=== PATIENT | male | born 1955 | race Caucasian/White ===

== ENCOUNTER 2021-07-24 21:05 | Emergency (ER) | payer BC, MEDICARE ==
[2021-07-24 22:04] LABS: BASOPHILS # (AUTO) 0.1 10^3/uL (0.0-0.1); BASOPHILS % (AUTO) 0.8 %; EOSINOPHILS # (AUTO) 0.2 10^3/uL (0.0-0.7); EOSINOPHILS % (AUTO) 2.4 %; HCT - HEMATOCRIT 39.8 % (42.0-52.0); HGB - HEMOGLOBIN 13.8 g/dL (14.0-18.0); LYMPHOCYTES # (AUTO) 2.3 10^3/uL (1.5-3.5); LYMPHOCYTES % (AUTO) 28.6 %; MEAN CORPUSCULAR HEMOGLOBIN 31.2 pg (27.0-31.0); MEAN CORPUSCULAR HGB CONC 34.7 g/dL (32.0-36.0); MEAN CORPUSCULAR VOLUME 89.8 fL (80.0-94.0); MEAN PLATELET VOLUME 10.3 fL (7.4-11.4); MONOCYTES # (AUTO) 0.8 10^3/uL (0.0-1.0); MONOCYTES % (AUTO) 9.7 %; NEUTROPHILS # (AUTO) 4.6 10^3/uL (1.5-6.6); NEUTROPHILS % (AUTO) 58.1 %; PLT - PLATELET COUNT 225 10^3/uL (130-450); RED BLOOD COUNT 4.43 10^6/uL (4.70-6.10); RED CELL DISTRIBUTION WIDTH 13.2 % (12.0-15.0); WHITE BLOOD COUNT 7.9 x10^3/uL (4.8-10.8)
[2021-07-24 22:09] LABS: INR 0.9 (0.8-1.2); PT - PROTHROMBIN TIME 10.5 secs (9.9-12.6)
[2021-07-24 22:11] LABS: CALCIUM 9.5 mg/dL (8.5-10.3); CREATININE 1.2 mg/dL (0.6-1.2)
[2021-07-24] MEDS ORDERED: ENOXAPARIN 80 MG/0.8 ML SYRINGE SUBQ STA (22:52)
--- NOTE | 2021-07-24 22:53 | ED Physician Documentation ---
PD HPI LOWER EXT INJURY - Stated complaint Stated Complaint: SWELLING L LEG - Chief complaint Chief Complaint: Ext Problem - History obtained from History obtained from: Patient - Additional information Additional information: Patient presenting for evaluation of left leg swelling and bruising Which he noticed today. On Sunday, patient was Walking in the snow at [employer] When he felt a pop, pain sensation behind the left knee.He was seen at an urgent care the following day and felt to have had a Lai's cyst. He was advised that if he develops swelling in the extremity he may need an ultrasound to rule out a DVT.This evening he noticed increased swelling to the extremity as well as bruising and discoloration to the extremity. Denies any new trauma. Denies history of PE or DVT. Denies chest pain or difficulty breathing. He has been active this week including going to the driving range today. Review of Systems Constitutional: denies: Fever Nose: denies: Congestion Cardiac: denies: Chest pain / pressure Respiratory: denies: Dyspnea GI: denies: Abdominal Pain : denies: Hematuria Musculoskeletal: reports: Extremity pain, Extremity swelling Neurologic: denies: Syncope PD PAST MEDICAL HISTORY - Past Medical History Cardiovascular: Hypertension Respiratory: None Neuro: None Endocrine/Autoimmune: None GI: None : None HEENT: None Psych: None Musculoskeletal: Osteoarthritis Derm: None Other Past Medical History: Prostate CA --PSA # WNL, no active tx - Present Medications Home Medications: Ambulatory Orders Medication Instructions Recorded Confirmed Losartan [Cozaar] 100 mg PO DAILY 07/24/21 07/24/21 - Allergies Allergies/Adverse Reactions: Allergies Allergy/AdvReac Type Severity Reaction Status Date / Time terbinafine [From Lamisil] Allergy Mild Rash Verified 07/24/21 22:33 - Social History Does the pt smoke?: No Smoking Status: Never smoker Does the pt drink ETOH?: Yes ETOH Use: Wine Does the pt have substance abuse?: No - Immunizations Immunizations are current?: Yes PD ED PE NORMAL - General General: Alert and oriented X 3, No acute distress, Well developed/nourished - HEENT HEENT: Atraumatic, Moist mucous membranes - Neck Neck: Supple, no meningeal sign - Cardiac Cardiac: RRR - Respiratory Respiratory: No respiratory distress, Clear bilaterally - Abdomen Abdomen: Normal bowel sounds, Non tender - Derm Derm: No: Normal color - Extremities Extremities: Other (Dark purple bruising and swelling to left ankle with no bony tenderness, palpable distal pulses,Faint yellow and green ecchymosis to Lower leg, compartments of lower leg are soft, No calf tenderness) - Neuro Neuro: No motor deficit, No sensory deficit - Psych Psych: Normal mood, Normal affect Results - Vitals Vitals: Vital Signs - 24 hr 07/24/21 07/24/21 21:14 23:06 Temperature 36.5 C 36.4 C L Heart Rate 84 81 Respiratory 16 16 Rate Blood Pressure 170/100 H 155/89 H O2 Saturation 96 98 Oxygen O2 Source Room air - Labs Labs: Laboratory Tests 07/24/21 07/24/21 07/24/21 21:59 21:59 21:59 WBC 7.9 RBC 4.43 L Hgb 13.8 L Hct 39.8 L MCV 89.8 MCH 31.2 H MCHC 34.7 RDW 13.2 Plt Count 225 MPV 10.3 Neut # (Auto) 4.6 Lymph # (Auto) 2.3 [place] # (Auto) 0.8 Eos # (Auto) 0.2 Baso # (Auto) 0.1 Absolute Nucleated RBC 0.00 Nucleated RBC % 0.0 PT 10.5 INR 0.9 D-Dimer 335.0 H Sodium 142 Potassium 4.0 Chloride 109 Carbon Dioxide 23 Anion Gap 10.0 BUN 20 Creatinine 1.2 Estimated GFR (MDRD) 61 L Glucose 137 H Calcium 9.5 PD MEDICAL DECISION MAKING - ED course ED course: Reviewed labs with patient including elevated D-dimer. Discussed that this is a nonspecific test of which could suggest a DVT but an ultrasound is needed.Unfortunately, respiratory care technician is not available this evening. Discussed options for Lovenox including risks and benefits. Patient has no history of serious or life-threatening bleeding and is agreeable to a one-time dose of Lovenox. He understands to return at 9 AM for an ultrasound. In the meanwhile we will also apply an Femi wrap and instructed him to use ice and elevation to help with the swelling. Denies mechanism or symptoms which would suggest a bony injury warranting x-rays at this time. Patient has no symptoms to suggest a pulmonary embolism.Vital signs are stable. Departure - Departure Disposition: 01 Home, Self Care Clinical Impression: Left leg swelling Superficial bruising of lower leg Qualifiers: Encounter type: initial encounter Laterality: left Qualified Code(s): S80.12XA - Contusion of left lower leg, initial encounter Condition: Stable Instructions: ED Contusion Lower Extr Ch Comments: Based on your exam and blood test today, I feel you need an ultrasound of your left leg to evaluate for a blood clot (DVT). We do not have an respiratory care technician this evening. You were given a one-time dose of a blood thinner called Lovenox in case there is a blood clot. Please return at 9:00 in the morningTo the emergency department so that you may have an ultrasound of your leg. In the meanwhile, use the Femi wrap and elevate and ice the leg to see if this helps with the swelling and bruising. Please return to the emergency department with any concerns such as bleeding, chest pain, difficulty breathing, Worsening pain. Discharge Date/Time: 07/24/21 23:06
[2021-07-24 23:08] VITALS: BP 155/89
== END 2021-07-24 23:06 | disposition home or self-care (01) ==
LOC: ED 21:05
DX: S80.12XA Contusion of left lower leg, initial encounter (principal); X58.XXXA Exposure to other specified factors, initial encounter; Y93.01 Activity, walking, marching and hiking; Y92.838 Other recreation area as the place of occurrence of the external cause; I10 Essential (primary) hypertension
CPT/HCPCS: 36415; 80048; 85025; 85379; 85610; 96372; 99283; 99284; J1650

== ENCOUNTER 2021-07-25 08:41 | Emergency (ER) | payer BC, MEDICARE ==
[2021-07-25 08:56] VITALS: BP 193/89
--- NOTE | 2021-07-25 10:11 | Ultrasound Report ---
PROCEDURE: Duplex Ext Veins Left INDICATIONS: pain/swelling TECHNIQUE: Real-time imaging, as well as color and pulse Doppler interrogation, were performed of the lower extr emity deep veins from the inguinal ligament to the popliteal fossa. COMPARISON: None. FINDINGS: The deep veins are normally compressible, and free of intraluminal thrombus. Color and pu lse Doppler demonstrate normal phasic intraluminal flow. There is normal augmentation response to di stal compression maneuver. IMPRESSION: No evidence of left lower extremity DVT. Reviewed by: Vishnu Araujo MD on 07/25/2021 10:10 AM PDT Approved by: Vishnu Araujo MD on 07/25/2021 10:10 AM PDT Station ID: [id number]
--- NOTE | 2021-07-25 10:13 | ED Physician Documentation ---
PD HPI LOWER EXT INJURY - Stated complaint Stated Complaint: LT LEG SWELLING/TOLD TO RETURN - Chief complaint Chief Complaint: Ext Problem - History obtained from History obtained from: Patient - Additional information Additional information: The patient comes to the emergency department chief complaint of left lower extremity swelling and bruising after an injury 4 days ago. He states that he had been cross-country skiing for 3 days and then was walking and downhill ski boots when he suddenly felt a pain and spasm and has left upper calf. He tried taking couple more runs on his skis and states that it just hurt too much so he stopped. Patient states that it seemed like his calf was starting to feel little bit better, but then he felt some pain and swelling down toward his ankle last night and noticed that his ankle suddenly had become quite edematous with bruising tracking down from the calf. He was seen last night, and a D-dimer was elevated, so he was told to come back here for an ultrasound today. Patient denies chest pain or shortness of breath. He is otherwise feeling well. He is broken both ankles multiple times but denies any recent ankle injury. No other complaints at this time. Review of Systems Ten Systems: 10 systems reviewed and negative Constitutional: reports: Reviewed and negative Eyes: reports: Reviewed and negative Ears: reports: Reviewed and negative Nose: reports: Reviewed and negative Throat: reports: Reviewed and negative Cardiac: reports: Reviewed and negative Respiratory: reports: Reviewed and negative GI: reports: Reviewed and negative : reports: Reviewed and negative Skin: reports: Reviewed and negative Musculoskeletal: reports: Extremity pain, Joint pain, Joint swelling Neurologic: reports: Reviewed and negative Psychiatric: reports: Reviewed and negative Endocrine: reports: Reviewed and negative Immunocompromised: reports: Reviewed and negative PD PAST MEDICAL HISTORY - Past Medical History Cardiovascular: Hypertension Respiratory: None Neuro: None Endocrine/Autoimmune: None GI: None : None HEENT: None Psych: None Musculoskeletal: Osteoarthritis Derm: None - Present Medications Home Medications: Ambulatory Orders Medication Instructions Recorded Confirmed Losartan [Cozaar] 100 mg PO DAILY 07/24/21 07/24/21 - Allergies Allergies/Adverse Reactions: Allergies Allergy/AdvReac Type Severity Reaction Status Date / Time terbinafine [From Lamisil] Allergy Mild Rash Verified 07/25/21 08:51 - Social History Does the pt smoke?: No Smoking Status: Never smoker Does the pt drink ETOH?: Yes Does the pt have substance abuse?: No - Immunizations Immunizations are current?: Yes PD ED PE NORMAL - Vitals Vital signs reviewed: Yes - General General: Alert and oriented X 3, No acute distress, Well developed/nourished - HEENT HEENT: Atraumatic, PERRL, EOMI, Moist mucous membranes - Neck Neck: Supple, no meningeal sign - Cardiac Cardiac: Strong equal pulses - Respiratory Respiratory: No respiratory distress - Derm Derm: Warm and dry, No rash, Other (Ecchymosis around the left ankle, particularly medial malleolus.) - Extremities Extremities: No deformity, Other (Moderate edema left ankle. No deformity. Tenderness palpation over edematous areas but full range of motion noted.) - Neuro Neuro: Alert and oriented X 3 - Psych Psych: Normal mood, Normal affect Results - Vitals Vitals: Vital Signs - 24 hr 07/25/21 08:48 Temperature 36.2 C L Heart Rate 61 Respiratory 14 Rate Blood Pressure 193/89 H O2 Saturation 98 Oxygen O2 Source Room air - Rads (name of study) Venous duplex ultrasound left lower extremity Radiology: Final report received, EMP read indepedently, See rad report (Negative) PD MEDICAL DECISION MAKING - ED course Complexity details: reviewed results, re-evaluated patient, considered differential, d/w patient ED course: The patient's ultrasound is negative, and given the story of his injury, I suspected a calf muscle strain with tracking of the swelling and bruising. I discussed at length with the patient how to manage the symptoms at home and when he may try to get back into physical activity, particularly skiing. We have discussed the usual indications for follow-up and return. Departure - Departure Disposition: 01 Home, Self Care Clinical Impression: Strain of left calf muscle Condition: Stable Instructions: ED Strain Muscle Ext
== END 2021-07-25 10:22 | disposition home or self-care (01) ==
LOC: ED 08:41
DX: S86.112A Strain of other muscle(s) and tendon(s) of posterior muscle group at lower leg level, left leg, initial encounter (principal); X58.XXXA Exposure to other specified factors, initial encounter; Y93.24 Activity, cross country skiing
CPT/HCPCS: 99282; 99283